=== PATIENT | female | born 2000 | race Caucasian/White ===

== ENCOUNTER 2025-01-02 18:39 | Emergency (ER) | payer OTHER ==
[2025-01-02 18:45] VITALS: BP 100/66; PULSE 75; RESP 18; TEMP 97.3; BMI 28.3
[2025-01-02] MEDS ORDERED: FAMOTIDINE 20 MG TABLET ONE (20:32)
[2025-01-02] MEDS ORDERED: MAG HYDROX/AL HYDROX/SIMETH 30 ML UNIT-DOSE CUP ONE (20:32)
[2025-01-02] MEDS: MAG HYDROX/AL HYDROX/SIMETH 30 ML UNIT-DOSE CUP PO ONE (20:41)
[2025-01-02] MEDS: FAMOTIDINE 20 MG TABLET PO ONE (20:41)
[2025-01-02] MEDS ORDERED: ONDANSETRON *ODT* 4 MG TABLET ONE (20:47)
[2025-01-02] MEDS: ONDANSETRON 4 MG TABLET PO ONE (20:52)
[2025-01-02] MEDS ORDERED: SUCRALFATE 1 GM TABLET (FP) ONE (21:50)
[2025-01-02 21:52] LABS: BASO % 0.6 % (0-2.0); HEMATOCRIT 37.6 % (32.4-45.2); HEMOGLOBIN 12.7 GM/dL (10.7-15.3); LYMPH % 31.6 % (8-40); MCH 28.9 pg (25.7-33.7); MCHC 33.8 g/dl (32.0-36.0); MEAN CELL VOLUME 85.3 fl (80-96); MEAN PLT VOLUME 8.1 fl (7.5-11.1); NEUT % 57.8 % (42.8-82.8); PLATELET COUNT 307 10^3/uL (134-434); RBC 4.41 M/mm3 (3.60-5.2); RDW 13.6 % (11.6-15.6)
[2025-01-02] MEDS: SUCRALFATE 1 GM/10 ML UNIT DOSE CUPS PO ONE (21:52)
[2025-01-02] MEDS: SODIUM CHLORIDE 0.9% 500 ML INFUS.BAG IV ONE (22:14)
[2025-01-02 22:19] LABS: POTASSIUM 4.6 mmol/L (3.5-5.1)
[2025-01-02 22:21] LABS: CALCIUM 9.2 mg/dL (8.5-10.1)
[2025-01-02 22:22] LABS: ALBUMIN 3.9 g/dl (3.4-5.0); BLOOD UREA NITROGEN 12.4 mg/dL (7-18); MAGNESIUM 2.2 mg/dL (1.8-2.4)
[2025-01-02 22:24] LABS: CREATININE 0.6 mg/dL (0.55-1.3)
[2025-01-02 22:26] LABS: BILIRUBIN,TOTAL 0.5 mg/dL (0.2-1); TOT PROT 7.4 g/dl (6.4-8.2)
[2025-01-03 00:05] LABS: HIV INTERPRETATION NEGATIVE (NEGATIVE)
== END 2025-01-03 00:41 | disposition home or self-care (01) ==
LOC: JER 18:39
DX: R10.13 Epigastric pain (principal); R10.12 Left upper quadrant pain
CPT/HCPCS: 36415; 80053; 83690; 83735; 84703; 85025; 86803; 87389; 99283-25